=== PATIENT | female | born 1960 | race Caucasian/White ===

== ENCOUNTER 2022-02-16 04:07 | Day surgery (SDC) | payer OTHER ==
[2022-02-16 12:23] VITALS: BMI 25.9
[2022-02-16] MEDS ORDERED: SODIUM BICARBONATE 8.4% - 50 ML ONE (13:47)
[2022-02-16] MEDS ORDERED: PROPOFOL 20 ML ONE (13:51)
[2022-02-16] MEDS ORDERED: LIDOCAINE HCL/PF 2% SDV 5ML VIAL ONE (13:51)
[2022-02-16] MEDS ORDERED: MIDAZOLAM HCL 2 MG/2 ML SINGLE DOSE VIAL ONE (13:51)
[2022-02-16] MEDS ORDERED: ceFAZolin SODIUM 1 GM VIAL IVPB ONE (14:02)
[2022-02-16] MEDS ORDERED: ONDANSETRON 4 MG/2 ML VIAL IVPUSH PRN (14:42)
[2022-02-16] MEDS ORDERED: ACETAMINOPHEN 1000 MG/100 ML BAG IVPB ONE (14:45)
[2022-02-16] MEDS ORDERED: LACTATED RINGERS SOLUTION 1,000 ML IV SCH (14:45)
[2022-02-16] MEDS ORDERED: ACETAMINOPHEN INJECTION 100 ML IVPB ONE (15:16)
[2022-02-16 16:40] VITALS: PULSE 69; RESP 18
[2022-02-16 17:39] VITALS: BP 135/87; TEMP 98
== END 2022-02-16 17:30 | disposition home or self-care (01) ==
LOC: JASU-SURG 04:07
PROVIDERS: ATTEND Urology
PROC: 0T7B8ZZ Dilation of Bladder, Via Natural or Artificial Opening Endoscopic (ICD-10-PCS; principal; 2022-02-16 13:30)
PROC: 3E0K8GC Introduction of Other Therapeutic Substance into Genitourinary Tract, Via Natural or Artificial Opening Endoscopic (ICD-10-PCS; 2022-02-16 13:30)
DX: N30.10 Interstitial cystitis (chronic) without hematuria (principal)
CPT/HCPCS: 94760

== ENCOUNTER 2022-10-20 10:28 | Day surgery (SDC) | payer OTHER ==
[2022-10-19 15:06] VITALS: BMI 23.6
[2022-10-20 11:04] VITALS: RESP 20
[2022-10-20 12:40] VITALS: TEMP 97.1
[2022-10-20 13:26] VITALS: BP 118/88; PULSE 80
== END 2022-10-20 13:25 | disposition home or self-care (01) ==
LOC: FASU-ENDO 10:28
PROVIDERS: ATTEND Internal Medicine Gastroenterology
PROC: 0DJD8ZZ Inspection of Lower Intestinal Tract, Via Natural or Artificial Opening Endoscopic (ICD-10-PCS; principal; 2022-10-20 12:15)
DX: K57.30 Diverticulosis of large intestine without perforation or abscess without bleeding (principal); K64.1 Second degree hemorrhoids; K64.8 Other hemorrhoids

== ENCOUNTER 2023-02-09 11:15 | Day surgery (SDC) | payer OTHER ==
[2023-02-03 13:55] VITALS: BMI 24.2
[2023-02-09] MEDS ORDERED: PROPOFOL 40 ML ONE (12:21)
[2023-02-09 12:55] VITALS: TEMP 98
[2023-02-09 13:20] VITALS: RESP 18
[2023-02-09 13:22] VITALS: BP 135/76; PULSE 76
== END 2023-02-09 13:39 | disposition home or self-care (01) ==
LOC: FASU-ENDO 11:15
PROVIDERS: ATTEND Internal Medicine Gastroenterology
PROC: 0DB68ZX Excision of Stomach, Via Natural or Artificial Opening Endoscopic, Diagnostic (ICD-10-PCS; 2023-02-09)
PROC: 0DB48ZX Excision of Esophagogastric Junction, Via Natural or Artificial Opening Endoscopic, Diagnostic (ICD-10-PCS; 2023-02-09)
PROC: 0DB98ZX Excision of Duodenum, Via Natural or Artificial Opening Endoscopic, Diagnostic (ICD-10-PCS; principal; 2023-02-09 12:34)
DX: K31.7 Polyp of stomach and duodenum (principal); K21.00 Gastro-esophageal reflux disease with esophagitis, without bleeding; K31.9 Disease of stomach and duodenum, unspecified; K44.9 Diaphragmatic hernia without obstruction or gangrene

== ENCOUNTER 2024-07-05 06:34 | Day surgery (SDC) | payer OTHER ==
[2024-07-02 12:07] VITALS: BMI 27.4
[2024-07-05 08:32] VITALS: RESP 18
[2024-07-05] MEDS ORDERED: DEXTROSE 5%-0.45% SALINE 1,000 ML IV SCH (11:00)
[2024-07-05] MEDS ORDERED: PROPOFOL 40 ML ONE (11:15)
[2024-07-05] MEDS ORDERED: MIDAZOLAM HCL 2 MG/2 ML SINGLE DOSE VIAL ONE (11:15)
[2024-07-05] MEDS ORDERED: SODIUM BICARBONATE 8.4% 50 MEQ/50 ML DISP.SYRIN ONE (11:15)
[2024-07-05] MEDS ORDERED: LIDOCAINE HCL/PF 2% SDV 5ML VIAL ONE (11:15)
[2024-07-05] MEDS ORDERED: ceFAZolin SODIUM 1 GM VIAL ONE ×2 (11:15→11:39)
[2024-07-05] MEDS ORDERED: ONDANSETRON 4 MG/2 ML VIAL ONE (11:15)
[2024-07-05] MEDS ORDERED: KETOROLAC TROMETHAMINE 30 MG/1 ML VIAL ONE (11:15)
[2024-07-05] MEDS ORDERED: HEPARIN NA (PORCINE) 5,000 UNITS/ML 1ML VIAL ONE (11:18)
[2024-07-05] MEDS ORDERED: LIDOCAINE HCL 2% JELLY 11 ML TP ONE (11:18)
[2024-07-05] MEDS ORDERED: LIDOCAINE HCL 1%, 10 MG/ML (20ML VIAL) ONE (11:18)
[2024-07-05] MEDS: ceFAZolin SODIUM 1 GM VIAL IVPB ONE ×2 (11:40)
[2024-07-05 12:26] VITALS: BP 125/79; PULSE 69; TEMP 97
[2024-07-05] MEDS ORDERED: diphenhydrAMINE HCL 25 MG CAPSULE (FP) PO ONE ×2 (12:42→13:00)
== END 2024-07-05 13:30 | disposition home or self-care (01) ==
LOC: JASU-SURG 06:34
PROVIDERS: ATTEND Urology
PROC: 0T7B8ZZ Dilation of Bladder, Via Natural or Artificial Opening Endoscopic (ICD-10-PCS; principal; 2024-07-05 10:30)
DX: N30.10 Interstitial cystitis (chronic) without hematuria (principal)
CPT/HCPCS: J1644